=== PATIENT | female | born 1960 | race Caucasian/White ===

== ENCOUNTER 2019-03-30 20:28 | Emergency (ER) | payer SELFPAY ==
[2019-03-30] MEDS ORDERED: Morphine 10 MG/ML VIAL (1 ml) IM ONE (20:45)
[2019-03-30 20:47] VITALS: BP 129/61
--- NOTE | 2019-03-30 20:56 | UC ---
Lower Extremity/Ankle HPI - HPI Summary HPI Summary: injury to right ankle/foot last night, fell off coffee table hanging curtains. foot is inverted, large amount of bruising, unable to bear weight, pain is 10/10 - History of Current Complaint Chief Complaint: UCLowerExtremity Stated Complaint: RIGHT ANKLE INJURY Time Seen by Provider: 03/30/19 20:41 Hx Obtained From: Patient ?: No Onset/Duration: Sudden Onset, Lasting Minutes Severity Initially: Severe Severity Currently: Severe Pain Intensity: 10 Aggravating Factor(s): Standing, Ambulation Alleviating Factor(s): Nothing Able to Bear Weight: No - Allergies/Home Medications Allergies/Adverse Reactions: Allergies Allergy/AdvReac Type Severity Reaction Status Date / Time No Known Allergies Allergy Verified 03/30/19 20:48 Home Medications: Home Medications ALPRAZolam TAB* [Xanax TAB*] 0.5 mg PO TID PRN 03/30/19 [History Confirmed 03/30] Escitalopram * [Lexapro *] 20 mg PO DAILY 03/30/19 [History Confirmed 03/30/19] buPROPion TAB* [Wellbutrin TAB*] 100 mg PO BID 03/30/19 [History Confirmed 03/30] PMH/Surg Hx/FS Hx/Imm Hx Previously Healthy: No - depression/anxiety - Surgical History Surgical History: None - Family History Known Family History: Positive: Hypertension - Social History Alcohol Use: Weekly Substance Use Type: None Smoking Status (MU): Heavy Every Day Tobacco Smoker Review of Systems All Other Systems Reviewed And Are Negative: Yes Skin: Positive: Bruising Musculoskeletal: Positive: Arthralgia, Decreased ROM, Edema, Myalgia Is Patient Immunocompromised?: No Physical Exam Triage Information Reviewed: Yes Appearance: Well-Appearing, Well-Nourished, Pain Distress Vital Signs: Initial Vital Signs Temp 98.8 F 03/30/19 20:42 Pulse 92 03/30/19 20:42 Resp 16 03/30/19 20:42 BP 129/61 03/30/19 20:42 Pulse Ox 99 03/30/19 20:42 Eye Exam: Normal ENT Exam: Normal Musculoskeletal: Positive: ROM Limited @ - unable to move ankle in any direction, foot is inverted, bruising noted on lateral ankle and dorum of foot. + Pedal pulse, Edema @ - of the right foot and ankle Neurological Exam: Normal Psychological Exam: Normal Skin: Positive: Other - bruised, small cut to great toe Lower Extremity Course/Dx - Course Course Of Treatment: hx obtained, exam performed, meds reviewed, treated for pain and xray obtained kath applied and pain treated, sent to [facility] via private car for orthopedic follow up. - Differential Dx/Diagnosis Differential Diagnosis/HQI/PQRI: Contusion, Dislocation, Fracture (Closed), Sprain, Strain Provider Diagnosis: Dislocation of right ankle joint, Fracture of fifth metatarsal bone of right foot Discharge - Sign-Out/Discharge Documenting (check all that apply): Patient Departure All imaging exams completed and their final reports reviewed: No - Discharge Plan Condition: Stable Disposition: HOME Patient Education Materials: Ankle Dislocation (ED) Referrals: No Primary Care Phys,NOPCP [Primary Care Provider] - Additional Instructions: 1. report directly to ER 2. You received 6 mg of morphine IM at 2100 - Billing Disposition and Condition Condition: STABLE Disposition: Home
== END 2019-03-30 21:23 | disposition home or self-care (01) ==
LOC: UCCORT 20:28
DX: S93.04XA Dislocation of right ankle joint, initial encounter (principal); S92.354A Nondisplaced fracture of fifth metatarsal bone, right foot, initial encounter for closed fracture; F17.200 Nicotine dependence, unspecified, uncomplicated; W08.XXXA Fall from other furniture, initial encounter; Z79.899 Other long term (current) drug therapy
CPT/HCPCS: 96372; 99202; G0463; J2270

== ENCOUNTER 2019-12-09 06:45 | Observation (INO) | payer BC ==
[~2019-12-09 06:45] MED LIST: Buffered Lidocaine 1% SYRIN* 1 ML/SYRINGE INTRADERM ONE; Lactated Ringers 1000 ML Bag* 1,000 ML IV SCH
[2019-12-09] MEDS ORDERED: ceFAZolin 2 GM PREMIX in ORs 2 GM/50 ML BAG ONE (07:04)
[2019-12-09] MEDS ORDERED: Bupivacaine 0.5%* 50 ML MDV VIAL ONE (09:08)
[2019-12-09] MEDS ORDERED: HYDROmorphone INJ1* 1 MG/ML SYRINGE ONE ×2 (09:28→12:02)
[2019-12-09] MEDS ORDERED: Propofol* 10 MG/ML 20 ML BTL ONE (09:28)
[2019-12-09] MEDS ORDERED: Naloxone* 0.4 MG/ML 1 ML VIAL IV PRN (10:11)
[2019-12-09] MEDS ORDERED: HYDROmorphone INJ1* 1 MG/ML SYRINGE IV PRN (10:11)
[2019-12-09] MEDS ORDERED: Ondansetron INJ* 2 MG/ML VIAL ONE (10:27)
[2019-12-09] MEDS ORDERED: Ketorolac INJ* 30 MG/ML 1 ML VIAL ONE (10:27)
[2019-12-09] MEDS ORDERED: Dexamethasone IV* 4 MG/ML 1 ML (4 MG) ONE (10:27)
[2019-12-09] MEDS ORDERED: Ondansetron ODT TAB* 4 MG PO PRN (11:13)
[2019-12-09] MEDS ORDERED: diPHENhydraMINE PO* 25 MG PO PRN (11:13)
[2019-12-09] MEDS ORDERED: Polyethylene Glycol 3350* 17 GM PACKET PO PRN (11:13)
[2019-12-09] MEDS ORDERED: Magnesium Hydroxide LIQ* 30 ML UDC PO PRN (11:13)
[2019-12-09] MEDS ORDERED: Ondansetron INJ* 2 MG/ML VIAL IV PRN (11:13)
[2019-12-09] MEDS ORDERED: Morphine INJ* 2 MG/ML 1 ML SYRINGE (TWO MG - NEW SYRINGE VERSION) IV PRN (11:13)
[2019-12-09] MEDS ORDERED: oxyCODONE/Acetamin 5/325 MG* TAB PO PRN (11:13)
[2019-12-09] MEDS ORDERED: traZODone TAB* 50 MG TAB PO PRN (11:13)
[2019-12-09] MEDS ORDERED: oxyCODONE TAB* 5 MG TAB PO PRN (11:13)
[2019-12-09] MEDS ORDERED: diPHENhydraMINE IV* 50 MG/ML 1 ml VIAL (BENADRYL) IV PRN (11:13)
[2019-12-09] MEDS ORDERED: traMADol TAB* 50 MG PO PRN (11:13)
[2019-12-09] MEDS ORDERED: Cyclobenzaprine TAB* 10 MG PO PRN (11:13)
[2019-12-09] MEDS ORDERED: Lactated Ringers 1000 ML Bag* 1,000 ML IV SCH (12:00)
[2019-12-09] MEDS: oxyCODONE/Acetamin 5/325 MG* TAB PO PRN ×2 (13:17→21:27)
[2019-12-09] MEDS: Acetaminophen TAB* 325 MG PO SCH ×2 (14:00→22:10)
[2019-12-09] MEDS: ceFAZolin 1 GM ADVAN(*) 1 GM in NS 0.9% 50 ML* 50 ML IVPB SCH (16:30)
[2019-12-09] MEDS: ALPRAZolam TAB* 0.5 MG PO PRN (18:35)
[2019-12-09] MEDS: Aspirin TAB* 325 MG PO SCH (18:35)
--- NOTE | 2019-12-09 20:29 | OP ---
DATE OF OPERATION: 12/09/19 - ROOM #332 DATE OF : 60 SURGEON: Ricardo Chavez MD CAMPUS PRESIDENT: Chance Posada PA-C PRE-OP DIAGNOSIS: Displaced talar body fracture with arthritis and deformity of the right subtalar joint. POST-OP DIAGNOSIS: Displaced talar body fracture with arthritis and deformity of the right subtalar joint. OPERATIVE PROCEDURE: Right subtalar fusion with tibial bone grafting. DESCRIPTION OF PROCEDURE: The patient was taken to the operating room where a lateral longitudinal incision was made from the fibula down toward the sinus tarsi. We incised directly through the ligaments of the sinus tarsi to allow visualization of the subtalar joint. The joint was opened with a Teague elevator and a lamina damage assessor. We then used a 4-mm power bur to prepare the joint surfaces for arthrodesis. Proximally at Gerdy's tubercle, a 3-cm incision was made obliquely. We transected the periosteum over the tubercle and then penetrated the tubercle with a 4-mm power bur. We harvested cancellous bone from the proximal tibia, replacing it with some allograft chips. The closure then consisted of 2-0 Vicryl for the periosteum, 3-0 Monocryl subcu and 3-0 running subcuticular. Some of the allograft chips were mixed with the autograft also and placed into the subtalar joint area, which was then pinned in a neutral position using paired 6.7-mm cannulate screws from the heel up to the head and neck area of the talus over washer. Good compression and alignment was obtained. We then closed the lateral wound with deep 2-0 Monocryl, superficial 2-0 Monocryl and kathy for the skin and 2-0 Monocryl and 2-0 Prolene for the heel wound. A compression dressing and plaster splint was applied. [id number]/[facility] #: [id number] [facility]ITALM[facility]
[2019-12-09] MEDS: buPROPion TAB* 100 MG PO SCH (21:27)
[2019-12-09] MEDS: Magnesium Hydroxide LIQ* 30 ML UDC PO SCH (21:28)
[2019-12-09] MEDS: Docusate CAP* 100 MG PO SCH (21:28)
[2019-12-10] MEDS: ceFAZolin 1 GM ADVAN(*) 1 GM in NS 0.9% 50 ML* 50 ML IVPB SCH ×2 (00:07→09:36)
[2019-12-10] MEDS: oxyCODONE/Acetamin 5/325 MG* TAB PO PRN ×3 (03:51→15:32)
[2019-12-10] MEDS: Acetaminophen TAB* 325 MG PO SCH ×2 (06:01→14:48)
[2019-12-10] MEDS: buPROPion TAB* 100 MG PO SCH (08:12)
[2019-12-10] MEDS: Docusate CAP* 100 MG PO SCH (08:12)
[2019-12-10] MEDS: Magnesium Hydroxide LIQ* 30 ML UDC PO SCH (08:12)
[2019-12-10] MEDS: Aspirin TAB* 325 MG PO SCH (08:12)
[2019-12-10] MEDS: ALPRAZolam TAB* 0.5 MG PO PRN (08:22)
[2019-12-10] MEDS ORDERED: Escitalopram * 20 MG TABLET PO SCH (09:00)
--- NOTE | 2019-12-10 09:52 | DS ---
Orthopedic Discharge Summary - Discharge Summary Date of Admission:12/09/19 Date of Discharge: 12/10/19 Date of Surgery: 12/09/19 Attending Orthopedic Provider: Dr Chavez Pre-operative Diagnosis: R subtalar osteoarthritis Operative Procedure: R subtalar fusion with tibial bone grafting Disposition of Patient: home with in home nurse, pt, ot services Condition of Patient: stable History: RABIA GUTIERRES is a 58 year old F with increasingly severe R subtalar pain. Patient has failed conservative management and has elected to undergo a right subtalar fusion with tibial bone graft. Hospital Course: RABIA was admitted to [facility] on 12/09/19. Patient underwent a right subtalar fusion with tibial bone graft without complication followed by a brief recovery in PACU and transfer to the Short Stay Surgical Unit in stable condition. Physical therapy and occupational therapy also participated in this patients care. Post-op day 1: Pt seen at bedside. She felt well, pain was well controlled with PO medication, she felt comfortable working with PT. Denied CP, SOB, dizziness, nausea. RLE pain well controlled. On exam patient was alert and in no acute distress. Splint was clean , dry and intact. MTPs f/e intact, sensation intact to light touch distally, capillary refill less than two seconds distally. Physical therapy goals were met. Home Medications Medication Instructions Recorded Confirmed Type ALPRAZolam TAB* [Xanax TAB*] 1 mg PO TID PRN 03/30/19 12/09/19 History Escitalopram * [Lexapro *] 20 mg PO QAM 03/30/19 12/06/19 History buPROPion TAB* [Wellbutrin TAB*] 100 mg PO BID 03/30/19 12/09/19 History Ascorbic Acid [Vitamin C] 1,200 mg PO QAM 12/06/19 12/06/19 History Cholecalciferol (Vitamin D3) 1 tab PO QAM 12/06/19 12/06/19 History [Vitamin D3] Acetaminophen TAB* [Tylenol TAB*] 975 mg PO Q8HR tab 12/10/19 Rx Aspirin TAB* [Aspirin 325 MG TAB*] 325 mg PO DAILY #30 tab 12/10/19 Rx Docusate CAP* [Colace Cap*] 100 mg PO BID PRN #30 cap 12/10/19 Rx oxyCODONE TAB* [Roxycodone TAB 5 5 mg PO Q4H PRN #20 tab MDD 6 12/10/19 Rx mg*] Discharge Instructions following Orthopedic Surgery: Activity: * Nonweightbearing right leg * Continue physical therapy and occupational therapy exercises as shown Wound care: * Keep splint clean, dry and intact until follow up appointment You will have home care with a nurse, physical therapy, occupational therapy Call Orthopedic office for: * Increased drainage * Redness * Increased pain * Fever Go to ER with shortness of breath or chest pain. Diet: * Regular diet * Increase fluids and fiber to prevent constipation. * Continue to use stool softeners, call office if no bowel motion within 48 hours. Medications See Home Medication List in your packet for medications that you should take after discharge. DVT Prophylaxis: Aspirin Dosin mg once a day during period of limited mobility. Orthopedics to instruct when to stop Pain Control: Oxycodone Dosin mg 1 tab for moderate, 2 tabs for severe pain by mouth every 4 hours as needed. Maximum of 6 tabs per day. Hold for sedation, wean off as soon as pain allows Antibiotics are required prior to any dental work. FOLLOW UP: Follow up with [Scott] Within 10-14 days, call for appointment Please call our office with any questions or concerns ([phone]) [facility]
[2019-12-10 15:43] VITALS: BP 143/65
== END 2019-12-10 16:00 | disposition home or self-care (01) | DRG 314 ==
LOC: OR 06:45 → UNDOADMIN 11:13 → INTOOBSV 11:13 → SSU 11:13 → UNDODISIN 12-10 16:00
PROVIDERS: ADMIT Orthopaedic Surgery; ATTEND Orthopaedic Surgery
PROC: 0SGH07Z Fusion of Right Tarsal Joint with Autologous Tissue Substitute, Open Approach (ICD-10-PCS; principal; 2019-12-09 08:30)
DX: S92.101A Unspecified fracture of right talus, initial encounter for closed fracture (principal); X58.XXXA Exposure to other specified factors, initial encounter; M19.071 Primary osteoarthritis, right ankle and foot; M21.171 Varus deformity, not elsewhere classified, right ankle; F41.9 Anxiety disorder, unspecified; F32.9 Major depressive disorder, single episode, unspecified; F17.210 Nicotine dependence, cigarettes, uncomplicated; Y92.009 Unspecified place in unspecified non-institutional (private) residence as the place of occurrence of the external cause
CPT/HCPCS: A9270-GY; C1713; C1776; J0690; J1100; J1170; J1885; J2405; J2704; J3490